=== PATIENT | female | born 1945 | race Caucasian/White ===

== ENCOUNTER → 2016-12-25 | Outpatient (CLI) | payer OTHER ==
[~2016-12-25] MED LIST: ATV/1 PO; LPT10 PO; OMEG10007 PO
[2016-12-25 13:08] LABS: BASO % 0.9 %; BASO ABS # 0.05 K/uL (0-0.2); COMPLETE YES; EOS % 1.4 %; HEMATOCRIT 42.1 % (37-47); IG% 0.2 %; LYMPH % 24.8 %; LYMPH ABS # 1.41 K/uL (1.2-3.4); MEAN CELL VOLUME 94.2 fL (80-100); MEAN CORPUSCULAR HEMOGLOBIN 31.8 pg (25-34); MEAN CORPUSCULAR HGB CONC 33.7 g/dl (32-36); MEAN PLATELET VOLUME 11.4 fL (7.4-10.4); MONO % 7.6 %; NEUT % 65.1 %; PLATELET COUNT 262 K/uL (130-400); RED BLOOD COUNT 4.47 M/uL (4.2-5.4); WHITE BLOOD COUNT 5.68 K/uL (4.8-10.8)
[2016-12-25 13:24] LABS: ALT/SGPT 25 U/L (12-78); BLOOD UREA NITROGEN 23 mg/dl (7-18); BUN/CREATININE RATIO 27.1 (10-20); CARBON DIOXIDE 26 mmol/L (21-32); CHLORIDE 105 mmol/L (98-107); CHOLESTEROL 225 mg/dl (0-200); CREATININE 0.85 mg/dl (0.60-1.20); GLUCOSE 94 mg/dl (70-99); POTASSIUM 4.7 mmol/L (3.5-5.1); SODIUM 140 mmol/L (136-145); TRIGLYCERIDES 63 mg/dl (0-150); VERY LOW DENSITY LIPOPROT CALC 13 mg/dl
[2016-12-25 13:35] LABS: ALB/GLOB RATIO 1.2 (0.9-2); ALKALINE PHOSPHATASE 79 U/L (45-117); AST/SGOT 21 U/L (15-37); CHOLESTEROL/HDL RATIO 2.3; HDL CHOLESTEROL 98 mg/dl; LDL CHOLESTEROL CALCULATED 114 mg/dl
== END | disposition home or self-care (01) ==
LOC: C.LABBC 11:49
PROVIDERS: ATTEND Internal Medicine Geriatric Medicine
DX: E78.5 Hyperlipidemia, unspecified (principal); M19.90 Unspecified osteoarthritis, unspecified site; M54.16 Radiculopathy, lumbar region; R10.9 Unspecified abdominal pain; K76.0 Fatty (change of) liver, not elsewhere classified

== ENCOUNTER → 2017-01-31 | Outpatient (CLI) | payer OTHER ==
--- NOTE | 2017-01-31 12:47 | MAMMOGRAPHY REPORT ---
BILATERAL DIGITAL SCREENING MAMMOGRAM WITH CAD: 01/31/2017 CLINICAL HISTORY: Routine screening. Patient has no complaints. TECHNIQUE: Bilateral CC and MLO views were obtained. Current study was also evaluated with a Comput er Aided Detection (CAD) system. COMPARISON: Comparison is made to exams dated: 01/24/2016 mammogram, 08/12/2014 mammogram, 07/16/2013 mammogram, 07/09/2012 mammogram, 07/05/2011 mammogram, and 07/04/2010 mammogram - [facility]. BREAST COMPOSITION: There are scattered areas of fibroglandular density in both breasts. FINDINGS: There are minimal vascular calcifications in the breasts. A few stable benign-appearing m icrocalcifications. No new suspicious mass, architectural distortion or cluster of microcalcificati ons is seen. IMPRESSION: ACR BI-RADS CATEGORY 1: NEGATIVE There is no mammographic evidence of malignancy. A 1 year screening mammogram is recommended. The p atient will receive written notification of the results. Approximately 10% of breast cancers are not detected with mammography. A negative mammographic repor t should not delay biopsy if a clinically suggestive mass is present. Katina Argueta M.D. ay/:01/31/2017 11:18:26 [employer] Pipe Supervisor: Yesenia BARRY(R)(M), [facility] letter sent: Normal 1/2 BI-RADS Code: ACR BI-RADS Category 1: Negative
== END | disposition home or self-care (01) ==
LOC: C.MAMM 09:44
PROVIDERS: ATTEND Internal Medicine Geriatric Medicine
DX: Z12.31 Encounter for screening mammogram for malignant neoplasm of breast (principal)

== ENCOUNTER → 2017-02-26 | Outpatient (CLI) | payer OTHER ==
--- NOTE | 2017-02-26 11:48 | DIAGNOSTIC IMAGING REPORT ---
CT OF THE CHEST WITHOUT IV CONTRAST CLINICAL HISTORY: Solitary pulmonary nodule COMPARISON STUDY: 03/01/2016 CT DOSE: 193.28 mGy.cm TECHNIQUE: CT of the thorax was performed from the thoracic inlet to the lung bases. Images are reviewed in the axial, sagittal, and coronal planes. IV contrast was not administered for this examination. FINDINGS: Thyroid: Imaged portions of the thyroid gland are normal in appearance. Thoracic aorta: The thoracic aorta is normal in course and caliber, noting standard 3 vessel arch anatomy. Heart: The heart is normal in size and configuration, without pericardial effusion. Lungs and pleural spaces: No pleural effusions are visualized. There is a new 7 mm cluster of nodules within the right middle lobe as visualized in image #[id number]. These are nonspecific but likely are inflammatory. There is a new 11 mm lobulated nodule within the left lower lobe as visualized in image #120/306. There are few scattered tiny pulmonary nodules including the previously described 2 mm right lower lobe pulmonary nodule which is felt to be stable. Mediastinum: There is no mediastinal lymphadenopathy. Dottie: There is no evidence of pathologic hilar adenopathy given the limitations of a noncontrast study Axilla: Clear. Upper abdomen: Partially visualized upper abdominal viscera is within normal limits. Skeletal structures: There are no lytic or blastic osseous lesions. IMPRESSION: 1. Stable 2 mm right lower lobe pulmonary nodule 2. New cluster of nodules within the right middle lobe measuring 7 mm in aggregate 3. New solid 11 mm lobulated pulmonary nodule within the left lower lobe 4. A 3 month follow-up CT scan is recommended. Please refer to below summary of Fleischner criteria recommendations for follow-up of incidental CT nodules (Theo Huntley, Guidelines for management of small pulmonary nodules detected on CT scans: A statement from the Fleischner Society, Radiology 237: [phone].) SOLID NODULES Solitary nodule size: <6 mm * low risk patients: no follow-up needed * high risk patients: optional CT at 12 months Solitary nodule size: 6-8 mm * low risk patients: follow-up at 6-12 months, then consider further follow-up at 18-24 months * high risk patients: initial follow-up CT at 6-12 months and then at 18-24 months if no change Solitary nodule size: >8 mm * either low or high risk patients - consider follow-up CT at 3 months, and/or CT-PET, and/or biopsy Multiple nodules size: <6 mm * low risk patients: no routine follow-up * high risk patients: optional CT at 12 months Multiple nodules size: 6-8 mm * low risk patients: follow-up at 3-6 months, then consider further follow-up at 18-24 months * high risk patients: follow-up at 3-6 months, then at 18-24 months if no change Multiple nodules size: >8 mm * low risk patients: follow-up at 3-6 months, then consider further follow-up at 18-24 months * high risk patients: follow-up at 3-6 months, then at 18-24 months if no change Note: newly detected indeterminate nodule in persons 35 years of age or older. * low risk patients: minimal or absent history of smoking and/or other known risk factors * high risk patients: history of smoking or of other known risk factors (e.g. first degree relative with lung cancer, or exposure to asbestos, radon, uranium) * if a nodule up to 8 mm is partly solid or is ground glass further follow-up is required after 24 months to exclude possible slow growing adenocarcinoma (SAURABH) SUBSOLID NODULES Solitary pure ground-glass nodule * nodule size <6 mm - no CT follow-up required * nodule size >=6 mm - follow-up CT at 6-12 months, then every 2 years until 5 years Solitary part-solid nodule * nodule size <6 mm - no CT follow-up required * nodule size >=6 mm - follow-up CT at 3-6 months. If unchanged, and solid component remains <6 mm, then annual follow-up for 5 years Multiple subsolid nodules * nodule size <6 mm - follow-up CT at 3-6 months, consider further follow-up at 2 and 4 years if stable * nodule size >=6 mm - follow-up CT at 3-6 months, subsequent management based on the most suspicious nodule(s) Electronically signed by: Bandar Nicholson M.D. 02/26/2017 11:46 AM Dictated Date/Time: 02/26/2017 11:35 AM
== END | disposition home or self-care (01) ==
LOC: C.CTS 11:11
PROVIDERS: ATTEND Internal Medicine Geriatric Medicine
DX: R91.1 Solitary pulmonary nodule (principal)

== ENCOUNTER → 2017-06-05 | Outpatient (CLI) | payer OTHER ==
--- NOTE | 2017-06-05 11:06 | DIAGNOSTIC IMAGING REPORT ---
(CHEST) THORAX WITHOUT CLINICAL HISTORY: 72 years-old Female presenting with multiple pulmonary nodules, follow-up. TECHNIQUE: Multidetector CT imaging of the chest was performed without the use of intravenous contrast. IV contrast: None. A dose lowering technique was used consistent with the principles of ALARA (as low as reasonably achievable). COMPARISON: 02/26/2017. CT DOSE (mGy.cm): The estimated cumulative dose is 194.71 mGy.cm. 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 On soft tissue windows, normal thyroid and thoracic inlet. No axillary, supraclavicular, hilar, or mediastinal lymphadenopathy. Minimal atherosclerosis of the aortic arch. Normal heart size. Coronary artery calcification. No pericardial or pleural effusion. Upper abdomen normal. On lung windows, previously identified cluster of nodules in the right middle lobe has decreased in conspicuity (series 4 images 56 and 57). Previously noted multilobular solid nodule in the superior segment of the left lower lobe has also decreased in size and conspicuity, now measuring 8 mm (series 4 image 132). Few scattered old calcified granulomata 2 mm right lower lobe solid nodule is stable from prior (series 4 image 227). Airways patent. On bone windows, minimal degenerative changes of the thoracic spine. IMPRESSION: 1. Decreased size and conspicuity of the cluster of right middle lobe nodules and multilobular solid nodule in the superior segment of the left lower lobe. This likely indicates an infectious or inflammatory etiology. 2. Stable 2 mm right lower lobe pulmonary nodule unchanged since February 2016. Electronically signed by: Malick Mccarty M.D. 06/05/2017 11:04 AM Dictated Date/Time: 06/05/2017 10:58 AM
== END | disposition home or self-care (01) ==
LOC: C.CTS 10:43
PROVIDERS: ATTEND Physician Assistant
DX: R91.1 Solitary pulmonary nodule (principal)

== ENCOUNTER → 2017-12-28 | Outpatient (CLI) | payer OTHER ==
[~2017-12-28] MED LIST changes: +BIOT1TAB2 PO; +CALC625T8 PO; +FLUT0.15 NAE; +MISCCAP80 PO; +MULT-506 PO; +NAPR250T3 PO; +VNTHFA/IN INH
[2017-12-28 15:15] LABS: ALBUMIN 4.2 gm/dl (3.4-5.0); ALT/SGPT 22 U/L (12-78); BLOOD UREA NITROGEN 16 mg/dl (7-18); CALCIUM 10.2 mg/dl (8.5-10.1); CARBON DIOXIDE 28 mmol/L (21-32); CHOLESTEROL 186 mg/dl (0-200); CREATININE 0.84 mg/dl (0.60-1.20); GLUCOSE 90 mg/dl (70-99); POTASSIUM 4.3 mmol/L (3.5-5.1); SODIUM 137 mmol/L (136-145)
[2017-12-28 15:25] LABS: ALKALINE PHOSPHATASE 89 U/L (45-117); AST/SGOT 19 U/L (15-37); LDL CHOLESTEROL CALCULATED 88 mg/dl; TOTAL PROTEIN 7.2 gm/dl (6.4-8.2)
== END | disposition home or self-care (01) ==
LOC: C.LAB 13:13
PROVIDERS: ATTEND Internal Medicine Geriatric Medicine
DX: G47.00 Insomnia, unspecified (principal); E78.5 Hyperlipidemia, unspecified; R53.83 Other fatigue; K30 Functional dyspepsia; M19.90 Unspecified osteoarthritis, unspecified site; N39.41 Urge incontinence

== ENCOUNTER 2018-01-23 04:56 | Inpatient (IN) | payer OTHER ==
[2017-12-28 12:26] VITALS: Ht 132.1 cm; Wt 68.7 kg
--- NOTE | 2017-12-28 12:59 | PAT Medication Instructions ---
Service Date Dec 28, 2017. Current Home Medication List Albuterol Hfa (Ventolin Hfa), 2-4 PUFFS INH Q6H PRN for Shortness of Breath Atorvastatin (Lipitor), 5 MG PO Q2D Biotin (Biotin), 1 TAB PO QPM Calcium Polycarbophil (Fiber-Lax), 1 TAB PO QAM Fluticasone Propionate (Nasal) (Flonase Allergy Relief), 2 SPRAYS CHUY QD PRN for Shortness of Breath Lorazepam (Ativan), 0.5 MG PO HS Multivitamin (Multivitamin), 1 TAB PO QPM Naproxen Tab (Naprosyn), 250 MG PO QD PRN for Pain Probiotic Product (Probiotic), 1 CAP PO QPM Medication Instructions For Your Scheduled Surgery - Hold the following medications 7 days prior to surgery per your surgeon's instructions: Naproxen Tab (Naprosyn), 250 MG PO QD PRN for Pain - Hold the following medications the morning of surgery: Calcium Polycarbophil (Fiber-Lax), 1 TAB PO QAM - Take the following medications the morning of surgery with a sip of water: Albuterol Hfa (Ventolin Hfa), 2-4 PUFFS INH Q6H PRN for Shortness of Breath (if needed, and bring it with you to the hospital) Fluticasone Propionate (Nasal) (Flonase Allergy Relief), 2 SPRAYS CHUY QD PRN for Shortness of Breath (if needed) - Take the following medications as scheduled the night before surgery: Albuterol Hfa (Ventolin Hfa), 2-4 PUFFS INH Q6H PRN for Shortness of Breath (if needed) Biotin (Biotin), 1 TAB PO QPM Fluticasone Propionate (Nasal) (Flonase Allergy Relief), 2 SPRAYS CHUY QD PRN for Shortness of Breath (if needed) Lorazepam (Ativan), 0.5 MG PO HS Multivitamin (Multivitamin), 1 TAB PO QPM Probiotic Product (Probiotic), 1 CAP PO QPM Atorvastatin (Lipitor), 5 MG PO Q2D If you have any questions please call us at [phone] or [phone] or [phone]
[2017-12-28 14:01] LABS: BASO % 0.6 %; BASO ABS # 0.03 K/uL (0-0.2); EOS % 1.3 %; EOS ABS # 0.07 K/uL (0-0.5); HEMATOCRIT 42.5 % (37-47); HEMOGLOBIN 14.4 g/dL (12.0-16.0); IG# 0.01 K/uL (0.00-0.02); LYMPH % 32.3 %; LYMPH ABS # 1.74 K/uL (1.2-3.4); MEAN CELL VOLUME 93.2 fL (80-100); MEAN CORPUSCULAR HEMOGLOBIN 31.6 pg (25-34); MEAN CORPUSCULAR HGB CONC 33.9 g/dl (32-36); MEAN PLATELET VOLUME 11.1 fL (7.4-10.4); MONO % 7.6 %; MONO ABS # 0.41 K/uL (0.11-0.59); NEUT ABS # 3.13 K/uL (1.4-6.5); PLATELET COUNT 234 K/uL (130-400); RED CELL DISTRIBUTION WIDTH CV 12.6 % (11.5-14.5); RED CELL DISTRIBUTION WIDTH SD 42.9 fL (36.4-46.3); WHITE BLOOD COUNT 5.39 K/uL (4.8-10.8)
--- NOTE | 2017-12-28 14:02 | DIAGNOSTIC IMAGING REPORT ---
CHEST 2 VIEWS ROUTINE HISTORY: 72 years-old Female PAT preoperative exam. No acute chest complaints COMPARISON: Chest CT 06/05/2017 TECHNIQUE: PA and lateral views of the chest. FINDINGS: Cardiomediastinal and hilar silhouettes are within normal limits. There is no pneumothorax, pleural effusion, focal airspace consolidation or overt pulmonary edema. The superior most lung apices are excluded from the [id number]. Bones of the chest appear grossly intact. Degenerative changes noted about the shoulders and spine. IMPRESSION: No acute process. The above report was generated using voice recognition software. It may contain grammatical, syntax or spelling errors. Electronically signed by: Dusty Castellano M.D. 12/28/2017 2:01 PM Dictated Date/Time: 12/28/2017 1:53 PM
[2017-12-29 07:21] LABS: HEMOGLOBIN A1C 5.3 % (4.5-5.6)
--- NOTE | 2018-01-07 14:37 | HISTORY & PHYSICAL EXAMINATION ---
DATE OF ADMISSION: 01/23/2018 CHIEF COMPLAINT: Left knee pain. HISTORY OF PRESENT ILLNESS: Faith is a 72-year-old female with a 9-year history of left knee pain. The patient rates her pain at 8/10. She has pain with her daily activities. She has limited standing and walking tolerance. Pain is worse with weightbearing. The patient has had injections and anti-inflammatories through the years without relief. She has failed conservative treatment and is scheduled for left knee replacement. PAST MEDICAL HISTORY: Lung nodules. She denies heart disease, diabetes or DVT. PAST SURGICAL HISTORY: Right TKA and hysterectomy. SOCIAL HISTORY: The patient drinks 2 alcoholic drinks per week. She denies tobacco use. She lives in a 2-story home with 9 stairs. She is and retired. FAMILY HISTORY: Negative for DVT. MEDICATIONS: Zetia 10 mg, lorazepam 0.5 mg, and naproxen 500 mg b.i.d. ALLERGIES: DOXYCYCLINE CAUSES DEHYDRATION AND DIARRHEA. REVIEW OF SYSTEMS: See HPI. Ten other systems reviewed, all negative. PHYSICAL EXAMINATION: VITAL SIGNS: Height 5 feet 4 inches, weight 150 pounds, and BMI 26. GENERAL: This is a well-developed and well-nourished female who is alert and oriented x3. Mood and affect are appropriate. HEENT: Normocephalic and atraumatic. Mucous membranes are moist and intact. NECK: Supple without lymphadenopathy. HEART: Regular rate and rhythm without murmurs, rubs or gallops. LUNGS: Clear to auscultation without wheezes or rhonchi. ABDOMEN: Soft and nontender. Bowel sounds are equal and active. EXTREMITIES: No ecchymosis, redness or warmth. She has neutral alignment. Range of motion is from 0-115 degrees. She has no laxity. She has moderate effusion. She is neurovascularly intact with +5/5 strength. X-RAY EXAMINATION: AP and lateral views show joint space narrowing and osteophyte formation. IMPRESSION: Degenerative joint disease, left knee. PLAN: The patient will be admitted for a left total knee arthroplasty. We will plan on aspirin for DVT prophylaxis. PCP is Dr. Ramos. She will have [facility] for home physical therapy.
[~2018-01-23] VITALS: Ht 132.1 cm; Wt 68.7 kg
[2018-01-23] VITALS (8 sets, daily range): BP systolic 103–150; BP diastolic 64–77; PULSE 49–65; TEMP 35–36.9; O2SAT 96–99
[~2018-01-23 04:56] MED LIST changes: -OMEG10007 PO
[2018-01-23] MEDS ORDERED: GABAPENTIN 300 MG CAP PO SCH (06:00)
[2018-01-23] MEDS ORDERED: ACETAMINOPHEN 500 MG TAB PO SCH (06:00)
[2018-01-23] MEDS ORDERED: FAMOTIDINE 20 MG TAB PO SCH (06:00)
[2018-01-23] MEDS ORDERED: CEFAZOLIN 1000MG IV PUSH 7.5 ML IV SCH (06:00)
[2018-01-23] MEDS ORDERED: LACTATED RINGER'S 1000ML 500 ML IV SCH (06:00)
[2018-01-23] MEDS ORDERED: OXYCODONE HCL 10 MG TABCR (OXYCONTIN) PO SCH (06:00)
[2018-01-23] MEDS ORDERED: DEXAMETHASONE 4 MG TAB PO SCH (06:00)
[2018-01-23] MEDS ORDERED: METOCLOPRAMIDE HCL 10 MG TAB PO SCH (06:00)
[2018-01-23] MEDS ORDERED: CeleBREX 200 MG CAP PO SCH (06:00)
[2018-01-23] MEDS ORDERED: ROPIVACAINE 5MG/ML 30 ML 150 MG, BUPIVACAINE 0.5% MPF INJ 30 ML, EpINEphrine HCL INJ 0.... INFIL SCH ×8 (06:00)
[2018-01-23] MEDS ORDERED: LACTATED RINGER'S 1000ML 1,000 ML IV SCH (06:00)
[2018-01-23] MEDS: TRANEXAMIC ACID INJ 1,000 MG x 2 Bags IV SCH ×4 (06:23→06:30)
[2018-01-23] MEDS ORDERED: BUPIVACAINE 0.5 % 5 MG/1 ML PF 10ML VIAL ONE (06:27)
[2018-01-23] MEDS ORDERED: BUPIVACAINE 0.25% 30 ML VIAL ONE (06:28)
[2018-01-23] MEDS ORDERED: ORTHO JOINT ANESTHETIC ONE (06:44)
[2018-01-23] MEDS ORDERED: POVIDONE-IODINE OP SOLN 30 ML BTL ONE (06:44)
[2018-01-23] MEDS ORDERED: BACITRACIN 50000 UNIT VIAL ONE (06:44)
[2018-01-23] MEDS ORDERED: MIDAZOLAM HCL 1 MG/ML 2ML VIAL ONE ×2 (06:48→07:16)
--- NOTE | 2018-01-23 06:57 | History & Physical Bridge Note ---
H&P Re-Evaluation Bridge Note: I have examined the patient, reviewed the History & Physical and in the interval since the performance of the History & Physical I have noted the following changes of clinical significance: No changes noted
[2018-01-23] MEDS ORDERED: LIDOCAINE HCL 2% 2 ML VIAL (20MG/ML) ONE (07:20)
[2018-01-23] MEDS ORDERED: PROPOFOL IV EMULSION 10 MG/ML 20 ML VIAL IV ONE (07:20)
--- NOTE | 2018-01-23 08:03 | [facility] Operative Report ---
Operative Report Operative Date Jan 23, 2018. Pre-Operative Diagnosis Left knee degenerative joint disease Post-Operative Diagnosis Left knee degenerative joint disease Procedure(s) Performed Left total knee arthroplasty utilizing journey to patient match total knee arthroplasty size 3 femur to tibia 10 Poly [address] Calvin Salvador Edge In[employer] Heels Surgeon(s) Jez Parekh PA-C Estimated Blood Loss 5cc Findings Patient presents with severe end-stage tricompartmental degenerative joint disease no response to conservative therapy including physical therapy anti- inflammatories relative rest activity modification injections patient presents for total knee arthroplasty after thorough understanding of discussion of risks and complications Specimens A. Left knee bone and tissue Anesthesia Type MAC Spinal Regional Complication(s) none Disposition Recovery Room / PACU Indications Patient presents after failing attempts at conservative management with severe end-stage tricompartmental degenerative joint disease patient subchondral cystic changes sclerosis marginal osteophytes bone to bone changes no response to conservative management Description of Procedure After proper prepping and draping of the left lower extremity anterior midline incision was made over the region of the extensor extensor mechanism after meticulous hemostasis was obtained and maintained in subcutaneous tissues a medial parapatellar incision was made The patella was subluxed lateralward the medial lateral gutter were cleaned from any hypertrophic synovitis and scar tissue of the distal femoral block was placed and the distal femoral osteotomy cut was made subsequently the chamfers anterior and posterior osteotomy cuts were made utilizing the 4-in-1 block the tibia was subsequently subluxed anteriorward medial and ateral meniscal remnants were excised in their entirety remnants of the anterior and posterior cruciate ligaments were excised in their entirety excellent exposure of the proximal tibia was obtained the tibial osteotomy guide was placed on the proximal tibial osteotomy cut was made once again the knee was irrigated with copious amounts of sterile saline solution the patella was subsequently everted lateralward thickened scar tissue around the patella was removed the patella was subsequently cut utilizing a freehand technique and was drilled prepared for final preparation and placement of patella socially flexion-extension gaps were checked and the equal and symmetric trials were placed to the appropriate femoral and tibial trials with poly-spacer being placed for equal flexion and extension gaps and full range of motion including extension to 0 and flexion to 140 the trial components after having been taken to recovery range of motion was subsequently removed meticulous hemostasis was obtained and maintained subsequently a knee block injection of joint cocktail including ropivacaine 0.5% 150 mg. Bupivacaine 0.5 % epinephrine 1-200,030 mL's toradol 30 mg dexamethasone 4 mg ketamine 10 mg clonidine 100 micrograms normal saline solution 30 mg was infiltrated into the soft tissues of the posterior knee medial lateral gutters and periosteal synovium special attention was paid to protect neurovascular structures at all times subsequently trial components having been removed the knee was irrigated with sterile saline solution. debris was removed the proximal tibia was subsequently prepared and was made ready for the placement of the tibial component tibial component was also cemented and tamped into position the femoral component was subsequently placed and cemented in the position the patellar component was subsequently cemented in position because hemostasis once again obtained and maintained wound having been thoroughly irrigated with debridement and debridement lavage was performed as well as a medial parapatellar incision closed with #1 Vicryl in interrupted fashion subcutaneous was closed with #2 Vicryl skin was closed with skin clips. PA-C was necessary for prepping and drapping as well as wound closure of deep fascia Sub cutaneous tissue and skin and was necessary for the case. A sterile compressive dressing was placed patient was taken to recovery in stable condition of report dictated by [place] I attest to the content of the Intraoperative Record and any orders documented therein. Any exceptions are noted below. I attest to the content of the Intraoperative Record and any orders documented therein. Any exceptions are noted below.
[2018-01-23] MEDS ORDERED: ATROPINE SULFATE 0.1 MG/ML 5ML SYR IV PRN (09:00)
[2018-01-23] MEDS ORDERED: KETOROLAC TROMETHAMINE 30 MG/ML VIAL IV. PRN (09:00)
[2018-01-23] MEDS ORDERED: ALBUTEROL HFA 8 GM INHALER INH PRN (09:00)
[2018-01-23] MEDS ORDERED: BISACODYL 10 MG SUPP PR PRN (09:00)
[2018-01-23] MEDS ORDERED: KETOROLAC TROMETHAMINE 15 MG/ML VIAL IV. PRN (09:00)
[2018-01-23] MEDS ORDERED: ONDANSETRON INJ 2 MG/ML 2 ML VIAL IV PRN ×2 (09:00)
[2018-01-23] MEDS ORDERED: HYDROmorphone INJ 2 MG/ML SYR/VIAL IV PRN (09:00)
[2018-01-23] MEDS ORDERED: METOPROLOL TARTRATE 1 MG/ML VIAL IV PRN (09:00)
[2018-01-23] MEDS ORDERED: MoRPHine SULFATE 2 MG/ML CARP IV PRN (09:00)
[2018-01-23] MEDS ORDERED: FLUTICASONE PROPIONATE NA SPR 16 GM BTL NAE PRN (09:00)
[2018-01-23] MEDS ORDERED: MAGNESIUM HYDROXIDE SUSP 30 ML UDC PO PRN (09:00)
[2018-01-23] MEDS ORDERED: PHENYLEPHRINE 100MCG/ML 5ML SYR IV PRN (09:00)
[2018-01-23] MEDS ORDERED: ALUMINUM/MAGNESIUM/SIMETH (MAALOX MAX) 30 ML UDC PO PRN (09:00)
[2018-01-23] MEDS ORDERED: SOD PHOSPHATE/SOD BIPHOSPHATE ENEMA 132 ML BTL PR PRN (09:00)
[2018-01-23] MEDS ORDERED: ZOLPIDEM TARTRATE 5 MG TAB PO PRN (09:00)
--- NOTE | 2018-01-23 09:13 | DIAGNOSTIC IMAGING REPORT ---
L KNEE 1 OR 2 VIEWS ROUTINE CLINICAL HISTORY: 72 years-old Female presenting with AP/LATERAL IN PACU LEFT KNEE. TECHNIQUE: Frontal and lateral views of the left knee were obtained. COMPARISON: None. FINDINGS: Post surgical changes of total left knee arthroplasty with patellar resurfacing. Surgical drain in place. Expected intra-articular and soft tissue emphysema. No malalignment. No periprosthetic fracture. No hardware competition. IMPRESSION: Expected postsurgical appearance status post total left knee arthroplasty with patellar resurfacing. Electronically signed by: Malick Mccarty M.D. 01/23/2018 9:12 AM Dictated Date/Time: 01/23/2018 9:11 AM
[2018-01-23] MEDS: D5W AND 1/2NSS + 20MEQ KCL 1,000 ML IV SCH ×2 (11:02→20:32)
--- NOTE | 2018-01-23 12:03 | Anesthesiology Progress Note ---
Anesthesia Post Op Note Date & Time Jan 23, 2018 at 12:03 Vital Signs Pain Intensity: 0.0 Vital Signs Past 12 Hours Date Time Temp Pulse Resp B/P (MAP) Pulse Ox O2 Delivery O2 Flow Rate FiO2 01/23/18 11:42 36.5 54 18 113/70 (84) 98 Nasal Cannula 2.0 01/23/18 10:30 63 12 115/72 (86) 96 Nasal Cannula 2.0 01/23/18 10:03 59 12 113/72 (86) 96 2.0 01/23/18 09:46 96 Nasal Cannula 2.0 01/23/18 09:35 Nasal Cannula 2.0 01/23/18 09:35 36.9 61 14 121/71 (88) 96 Nasal Cannula 2.0 01/23/18 09:16 132/63 01/23/18 09:13 36.7 66 16 132/63 (80) 97 Nasal Cannula 2 01/23/18 09:12 67 12 01/23/18 09:12 67 12 97 01/23/18 09:11 143/74 01/23/18 09:10 71 16 01/23/18 09:10 72 16 98 01/23/18 09:09 70 20 97 01/23/18 09:09 70 20 01/23/18 09:06 127/60 01/23/18 09:04 64 13 01/23/18 09:04 63 13 98 01/23/18 09:03 65 13 98 01/23/18 09:03 65 13 01/23/18 09:01 137/63 01/23/18 08:58 68 18 01/23/18 08:58 70 18 94 01/23/18 08:56 131/65 01/23/18 08:53 65 10 94 01/23/18 08:53 65 10 01/23/18 08:51 137/73 01/23/18 08:48 71 22 96 01/23/18 08:48 74 22 01/23/18 08:46 140/69 01/23/18 08:43 36.7 68 14 124/64 (88) 97 Nasal Cannula 2 01/23/18 08:43 66 10 01/23/18 08:43 66 10 124/64 97 01/23/18 05:33 36.5 65 20 150/74 99 Room Air Notes Mental Status: alert / awake / arousable, participated in evaluation Pt Amnestic to Procedure: Yes Nausea / Vomiting: adequately controlled Pain: adequately controlled Airway Patency, RR, SpO2: stable & adequate BP & HR: stable & adequate Hydration State: stable & adequate Anesthetic Complications: no major complications apparent
[2018-01-23] MEDS: ACETAMINOPHEN 500 MG TAB PO SCH ×2 (13:25→21:50)
[2018-01-23] MEDS: CEFAZOLIN IV 2,000 MG in SYRINGE 0 ML IV SCH ×2 (13:27→21:49)
[2018-01-23] MEDS: TRAMADOL HCL 50 MG TAB PO PRN (20:31)
[2018-01-23] MEDS: LORAZEPAM 1 MG TAB PO SCH (20:31)
[2018-01-23] MEDS: SENNA 8.6 MG TAB PO SCH (20:33)
[2018-01-23] MEDS: ASPIRIN 81 MG ECTAB PO SCH (20:34)
[2018-01-23] MEDS: DOCUSATE SODIUM 100 MG CAP PO SCH (20:34)
[2018-01-23] MEDS: CALCIUM POLYCARBOPHIL 1 TAB PO SCH (20:34)
[2018-01-24 02:31] VITALS: BP 132/66; PULSE 69; TEMP 36.7; O2SAT 97
[2018-01-24] MEDS: ACETAMINOPHEN 500 MG TAB PO SCH ×3 (05:47→21:47)
[2018-01-24] MEDS: D5W AND 1/2NSS + 20MEQ KCL 1,000 ML IV SCH (05:47)
[2018-01-24 05:59] LABS: HEMATOCRIT 34.7 % (37-47); HEMOGLOBIN 11.6 g/dL (12.0-16.0); MEAN CELL VOLUME 92.8 fL (80-100); MEAN CORPUSCULAR HGB CONC 33.4 g/dl (32-36); MEAN PLATELET VOLUME 10.7 fL (7.4-10.4); PLATELET COUNT 183 K/uL (130-400); RED CELL DISTRIBUTION WIDTH CV 12.6 % (11.5-14.5); RED CELL DISTRIBUTION WIDTH SD 42.7 fL (36.4-46.3); WHITE BLOOD COUNT 12.84 K/uL (4.8-10.8)
[2018-01-24 06:33] LABS: CALCIUM 9.1 mg/dl (8.5-10.1); CREATININE 0.91 mg/dl (0.60-1.20); POTASSIUM 4.9 mmol/L (3.5-5.1)
[2018-01-24 07:01] VITALS: BP 111/57; PULSE 63; TEMP 36.6; O2SAT 98
--- NOTE | 2018-01-24 08:00 | Orthopedic Progress Note ---
Orthopedic Progress Note Date of Service Jan 24, 2018. Subjective Post OP Day: 1 Reports: feeling well Objective N/V intact, dressing C/D/I (Hemovac in place), toes mobile Date Time Temp Pulse Resp B/P (MAP) Pulse Ox O2 Delivery O2 Flow Rate FiO2 01/24/18 07:01 36.6 63 16 111/57 (75) 98 Room Air 01/24/18 02:31 36.7 69 16 132/66 (88) 97 Room Air 01/23/18 23:26 Room Air 01/23/18 23:07 36.4 59 16 144/77 (99) 97 Room Air 01/23/18 15:33 Nasal Cannula 2.0 01/23/18 14:58 35.0 16 110/70 (83) 98 Nasal Cannula 2.0 01/23/18 12:31 49 12 103/64 (77) 98 Nasal Cannula 2.0 01/23/18 11:42 36.5 54 18 113/70 (84) 98 Nasal Cannula 2.0 01/23/18 10:30 63 12 115/72 (86) 96 Nasal Cannula 2.0 01/23/18 10:03 59 12 113/72 (86) 96 2.0 01/23/18 09:46 96 Nasal Cannula 2.0 01/23/18 09:35 Nasal Cannula 2.0 01/23/18 09:35 36.9 61 14 121/71 (88) 96 Nasal Cannula 2.0 01/23/18 09:16 132/63 01/23/18 09:13 36.7 66 16 132/63 (80) 97 Nasal Cannula 2 01/23/18 09:12 67 12 01/23/18 09:12 67 12 97 01/23/18 09:11 143/74 01/23/18 09:10 71 16 01/23/18 09:10 72 16 98 01/23/18 09:09 70 20 97 01/23/18 09:09 70 20 01/23/18 09:06 127/60 01/23/18 09:04 64 13 01/23/18 09:04 63 13 98 01/23/18 09:03 65 13 98 01/23/18 09:03 65 13 01/23/18 09:01 137/63 01/23/18 08:58 68 18 01/23/18 08:58 70 18 94 01/23/18 08:56 131/65 01/23/18 08:53 65 10 94 01/23/18 08:53 65 10 01/23/18 08:51 137/73 01/23/18 08:48 71 22 96 01/23/18 08:48 74 22 01/23/18 08:46 140/69 01/23/18 08:43 36.7 68 14 124/64 (88) 97 Nasal Cannula 2 01/23/18 08:43 66 10 01/23/18 08:43 66 10 124/64 97 Laboratory Results 24 Hours: Test 01/24/18 05:43 Hematocrit 34.7 % Hemoglobin 11.6 g/dL Prothromb Time International Ratio 1.0 Prothrombin Time 10.3 SECONDS Assessment & Plan Assessment: 72 yo female stable POD #1 s/p left TKA Plan: 1. Med management 2. DVT prophylaxis- ASA, SCDs 3. PT/OT 4. D/C planning: home w/ HH
[2018-01-24] MEDS: DOCUSATE SODIUM 100 MG CAP PO SCH ×2 (08:45→20:45)
[2018-01-24] MEDS: MULTIVITAMIN TAB PO SCH (08:46)
[2018-01-24] MEDS: ASPIRIN 81 MG ECTAB PO SCH ×2 (08:46→20:45)
[2018-01-24] MEDS: ATORVASTATIN 10 MG TAB PO SCH (08:46)
--- NOTE | 2018-01-24 08:49 | Anesthesiology Progress Note ---
Anesthesia Post Op Note Date & Time Jan 24, 2018 at 08:48 Vital Signs Pain Intensity: 3.0 Vital Signs Past 12 Hours Date Time Temp Pulse Resp B/P (MAP) Pulse Ox O2 Delivery O2 Flow Rate FiO2 01/24/18 07:01 36.6 63 16 111/57 (75) 98 Room Air 01/24/18 02:31 36.7 69 16 132/66 (88) 97 Room Air 01/23/18 23:26 Room Air 01/23/18 23:07 36.4 59 16 144/77 (99) 97 Room Air Notes Mental Status: alert / awake / arousable, participated in evaluation Pt Amnestic to Procedure: Yes Nausea / Vomiting: adequately controlled Pain: adequately controlled Airway Patency, RR, SpO2: stable & adequate BP & HR: stable & adequate Hydration State: stable & adequate Neuraxial Anesthesia: was administered, sensory block resolved Anesthetic Complications: no major complications apparent
[2018-01-24 10:43] VITALS: BP 124/54; PULSE 77; O2SAT 98
[2018-01-24 10:45] VITALS: BP 112/73; PULSE 64; TEMP 36.6; O2SAT 98
[2018-01-24] MEDS: OXYCODONE HCL IR 5 MG TAB (IMMEDIATE RELEASE) PO PRN ×2 (15:17→19:42)
[2018-01-24 15:24] VITALS: BP 111/64; PULSE 63; TEMP 37; O2SAT 97
--- NOTE | 2018-01-24 18:11 | Discharge Instructions ---
Discharge Instructions Date of Service Jan 24, 2018. Admission Reason for Admission: Left Knee Osteoarthritis Discharge Discharge Diagnosis / Problem: left total knee replacement Discharge Goals Goal(s): Decrease discomfort, Improve function, Increase independence Activity Recommendations Activity Limitations: as noted below Weightbearing Status: Left weightbearing (as tolerated) . Instructions / Follow-Up Instructions / Follow-Up ACTIVITY RECOMMENDATIONS: SELF CARE INSTRUCTIONS AFTER TOTAL KNEE REPLACEMENT A. You may need to continue a physical therapy program after discharge from the hospital. There are several options available to you. Your doctor will assist you in selecting the best one for you. 1. An out-patient facility 2 to 3 times a week for therapy or home therapy. 2. Continue working on all exercises taught to you in the hospital. Your goals should be to increase bending of your knee to 90 degrees and beyond and to fully straighten your knee. B. You may progress at your own pace from walking with a walker or crutches to a cane; then to no assistive devices. C. Make walking a part of your daily routine. Be up as much as comfortable with rest periods throughout the day. Rest with leg elevation is very important. Use the ice wrap frequently for the first 3-4 weeks. D. There are no restrictions on activities. You may ride in a car, shop, participate in reproduction specialist and all social activities. E. Wear the long elastic stockings (LIANG hose) 20 hours a day for 2 weeks after surgery. They can be removed several times a day for laundering and for a bath. F. You may shower, no tub baths until cleared by your doctor. SPECIAL CARE INSTRUCTIONS: VERY IMPORTANT TO READ AND REVIEW A. There are a few signs you need to watch for after you are home. Call [facility] if you notice any of the followin. Increased severe knee pain. Some pain is expected especially when you exercise. 2. Increased swelling in your leg or knee; pain or swelling of the calf muscle in either lower leg. 3. Any fluid drainage from the incision. 4. Shortness of breath or chest pain. B. Please call [facility] at if you have any concerns or questions about your operation or recovery. The doctor or his nurse will return your call promptly. C. You must take antibiotics before dental work, bladder, bowel or other surgery. Your doctor will provide you with a permanent care to carry describing this precaution. IMPORTANT: * REMEMBER TO TAKE ASPIRIN, 81 MG, TWICE DAILY FOR 4 WEEKS UNLESS OTHERWISE DIRECTED. THIS IS YOUR BLOOD THINNER. * HIGH RISK PATIENTS MAY BE PRESCRIBED A STRONGER BLOOD THINNER. THIS WILL BE PROVIDED AT DISCHARGE. * CALL IF INCREASED PAIN, REDNESS, DRAINAGE OR FEVER GREATER THAT 101. * WEAR LIANG HOSE 20 HOURS PER DAY FOR 2 WEEKS. * DERMABOND Prineo- This is a mesh tape dressing that is covered with glue. It should remain in place until the incision is properly healed, usually 10-14 days. This dressing is designed to naturally slough off. You may trim the excess mesh tape as it peels off. Incision may be briefly wet in a shower. Dry immediately by blotting with a clean, dry towel. Do not bath or swim until instructed by your doctor. Do not scratch, rub, or pick at the dressing. Do not apply any topical ointments or lotions until dressing is completely removed and/or instructed by your doctor. There may be a small piece of suture material at one end of your incision. Do not pull or trim this. If it is bothersome or catching on clothing, you may cover it with a band-aid. FOLLOW UP VISIT: If appointment is not already scheduled: Please call [facility] to make a follow-up appointment for 2 weeks after your surgery at . Current Hospital Diet Patient's current hospital diet: Regular Diet Discharge Diet Recommended Diet: Regular Diet Procedures Procedures Performed: Left total knee arthroplasty utilizing journey to patient match total knee arthroplasty size 3 femur to tibia 10 Poly 29 oval patella Pending Studies Studies pending at discharge: no Laboratory Results Hemoglobin A1c Test 12/28/17 13:28 Range/Units Estimated Average Glucose 105 mg/dl Hemoglobin A1c 5.3 4.5-5.6 % Lipid Panel Test 12/28/17 13:28 Range/Units Triglycerides Level 59 0-150 mg/dl Cholesterol Level 186 0-200 mg/dl HDL Cholesterol 86 mg/dl Cholesterol/HDL Ratio 2.2 LDL Cholesterol, Calculated 88 mg/dl Medical Emergencies . Who to Call and When: Medical Emergencies: If at any time you feel your situation is an emergency, please call 911 immediately. . Non-Emergent Contact Non-Emergency issues call your: Primary Care Provider, Surgeon . "Provider Documentation" section prepared by Jez Parekh. . [place] Drug Monitoring Program Search Results: patient reviewed within database, no issues identified
[2018-01-24] MEDS: LORAZEPAM 1 MG TAB PO SCH (20:44)
[2018-01-24] MEDS: SENNA 8.6 MG TAB PO SCH (20:45)
[2018-01-24] MEDS: CALCIUM POLYCARBOPHIL 1 TAB PO SCH (20:45)
[2018-01-24] MEDS: CeleBREX 200 MG CAP PO SCH (20:45)
[2018-01-24 23:08] VITALS: BP 123/63; PULSE 67; TEMP 36.7; O2SAT 96
[2018-01-25] MEDS: OXYCODONE HCL IR 5 MG TAB (IMMEDIATE RELEASE) PO PRN ×3 (06:14→18:53)
[2018-01-25] MEDS: ACETAMINOPHEN 500 MG TAB PO SCH ×3 (06:14→22:15)
[2018-01-25 07:29] VITALS: BP 121/62; PULSE 64; TEMP 36.7; O2SAT 97
--- NOTE | 2018-01-25 08:28 | Orthopedic Progress Note ---
Orthopedic Progress Note Date of Service Jan 25, 2018. Subjective Post OP Day: 2 Reports: feeling well, Denies: chest pain, SOB, nausea / vomiting, light headedness, calf pain Objective calves soft nontender, N/V intact, capillary refill less than 2 sec., incision C /D/I, A&O x3, toes mobile Date Time Temp Pulse Resp B/P (MAP) Pulse Ox O2 Delivery O2 Flow Rate FiO2 01/25/18 07:30 Room Air 01/25/18 07:29 36.7 64 18 121/62 (81) 97 Room Air 01/24/18 23:08 36.7 67 16 123/63 (83) 96 Room Air 01/24/18 19:45 Room Air 01/24/18 15:24 37.0 63 18 111/64 (80) 97 Room Air 01/24/18 15:15 Room Air 01/24/18 10:45 36.6 64 16 112/73 (86) 98 Room Air 01/24/18 10:43 77 98 Assessment & Plan Assessment: 72 yo female stable POD #2 s/p left TKA Plan: 1. Med management 2. DVT prophylaxis- ASA, SCDs 3. PT/OT 4. D/C planning: home w/ HH. DC HOME TODAY AFTER PT IF PAIN CONTROLLED
[2018-01-25] MEDS ORDERED: ASPEC81 PO (08:30)
[2018-01-25] MEDS ORDERED: ACET-24 PO (08:30)
[2018-01-25] MEDS ORDERED: RXC5 PO (08:31)
[2018-01-25] MEDS ORDERED: CLB200 PO (08:31)
[2018-01-25] MEDS ORDERED: ONDA-170 PO (08:31)
[2018-01-25] MEDS ORDERED: SENN-61 PO (08:31)
[2018-01-25] MEDS: ASPIRIN 81 MG ECTAB PO SCH ×2 (08:36→20:47)
[2018-01-25] MEDS: DOCUSATE SODIUM 100 MG CAP PO SCH ×2 (08:37→20:48)
[2018-01-25] MEDS: MULTIVITAMIN TAB PO SCH (08:37)
[2018-01-25] MEDS: CeleBREX 200 MG CAP PO SCH ×2 (08:37→20:47)
[2018-01-25] MEDS: TRAMADOL HCL 50 MG TAB PO PRN (08:38)
--- NOTE | 2018-01-25 09:42 | Discharge Summary ---
Orthopedic Discharge Summary Admission Date/Reason Jan 23, 2018 at 06:45 Left Knee Osteoarthritis. Discharge Date/Disposition Jan 25, 2018 Home with services Diagnosis Principal Diagnosis: Left knee osteoarthritis Procedure(s) Performed Left total knee arthroplasty utilizing journey to patient match total knee arthroplasty size 3 femur to tibia 10 Poly 29 oval patella Consultations NONE Medication Reconciliation New Medications: Ondansetron Hcl (Zofran) 8 Mg Tab 8 MG PO Q8 PRN for Nausea, #20 TAB Acetaminophen (Sb Non-Aspirin Extra Stre) 500 Mg Tab 1000 MG PO Q8H for 30 Days, #180 TAB Aspirin (Aspirin EC Low Dose) 81 Mg Ectab 81 MG PO BID for 30 Days, #60 TAB Celecoxib (Celebrex) 200 Mg Cap 200 MG PO BID, #60 CAP Oxycodone HCl (Oxycodone HCl) 5 Mg Tab 5-10 MG PO Q4H PRN for Pain, #60 TAB Senna (Senokot) 8.6 Mg Tab 17.2 MG PO HS for 14 Days, #28 TAB Continued Medications: Albuterol Hfa (Ventolin Hfa) 200 Puffs/17480 Mcg Aers 2-4 PUFFS INH Q6H PRN for Shortness of Breath, #1 INHALER Atorvastatin (Lipitor) 10 Mg Tab 2.5 MG PO Q2D Biotin (Biotin) 5 Mg Tab 1 TAB PO QPM Calcium Polycarbophil (Fiber-Lax) 625 Mg Tab 1 TAB PO QPM Fluticasone Propionate (Nasal) (Flonase Allergy Relief) 50 Mcg/Act Spr 2 SPRAYS CHUY QD PRN for Shortness of Breath Lorazepam (Ativan) 1 Mg Tab 0.5 MG PO HS, TAB Multivitamin (Multivitamin) Tab 1 TAB PO QPM, TAB Probiotic Product (Probiotic) 1 Cap Cap 1 CAP PO QPM Discontinued Medications: Naproxen Tab (Naprosyn) 250 Mg Tab 250 MG PO QD PRN for Pain, TAB Admission Physical Exam As per Admitting History & Physical. Hospital Course Patient was a same day admission after undergoing a successful left TKA. She tolerated the procedure well. Post-operatively, her activity was progressed and well tolerated. Please refer to daily progress notes and PT notes for complete details. After exam on 01/25/18, patient felt to be stable for discharge home with HHPT. Patient will f/u in the office in 2 weeks for further evaluation including x-rays and incision check, sooner if having any issues or concerns. Below are pertinent labs/studies during their hospital stay: Last Vital Signs Documentation Date Time Temp Pulse Resp B/P (MAP) Pulse Ox O2 Delivery O2 Flow Rate FiO2 01/25/18 07:30 Room Air 01/25/18 07:29 36.7 64 18 121/62 (81) 97 01/23/18 15:33 2.0 Last Resulted CBC 01/24/18 05:43 Last Resulted BMP 01/24/18 05:43 Discharge Instructions ACTIVITY RECOMMENDATIONS: SELF CARE INSTRUCTIONS AFTER TOTAL KNEE REPLACEMENT A. You may need to continue a physical therapy program after discharge from the hospital. There are several options available to you. Your doctor will assist you in selecting the best one for you. 1. An out-patient facility 2 to 3 times a week for therapy or home therapy. 2. Continue working on all exercises taught to you in the hospital. Your goals should be to increase bending of your knee to 90 degrees and beyond and to fully straighten your knee. B. You may progress at your own pace from walking with a walker or crutches to a cane; then to no assistive devices. C. Make walking a part of your daily routine. Be up as much as comfortable with rest periods throughout the day. Rest with leg elevation is very important. Use the ice wrap frequently for the first 3-4 weeks. D. There are no restrictions on activities. You may ride in a car, shop, participate in street worker and all social activities. E. Wear the long elastic stockings (LIANG hose) 20 hours a day for 2 weeks after surgery. They can be removed several times a day for laundering and for a bath. F. You may shower, no tub baths until cleared by your doctor. SPECIAL CARE INSTRUCTIONS: VERY IMPORTANT TO READ AND REVIEW A. There are a few signs you need to watch for after you are home. Call [facility] if you notice any of the followin. Increased severe knee pain. Some pain is expected especially when you exercise. 2. Increased swelling in your leg or knee; pain or swelling of the calf muscle in either lower leg. 3. Any fluid drainage from the incision. 4. Shortness of breath or chest pain. B. Please call [facility] at if you have any concerns or questions about your operation or recovery. The doctor or his nurse will return your call promptly. C. You must take antibiotics before dental work, bladder, bowel or other surgery. Your doctor will provide you with a permanent care to carry describing this precaution. IMPORTANT: * REMEMBER TO TAKE ASPIRIN, 81 MG, TWICE DAILY FOR 4 WEEKS UNLESS OTHERWISE DIRECTED. THIS IS YOUR BLOOD THINNER. * HIGH RISK PATIENTS MAY BE PRESCRIBED A STRONGER BLOOD THINNER. THIS WILL BE PROVIDED AT DISCHARGE. * CALL IF INCREASED PAIN, REDNESS, DRAINAGE OR FEVER GREATER THAT 101. * WEAR LIANG HOSE 20 HOURS PER DAY FOR 2 WEEKS. * DERMABOND Prineo- This is a mesh tape dressing that is covered with glue. It should remain in place until the incision is properly healed, usually 10-14 days. This dressing is designed to naturally slough off. You may trim the excess mesh tape as it peels off. Incision may be briefly wet in a shower. Dry immediately by blotting with a clean, dry towel. Do not bath or swim until instructed by your doctor. Do not scratch, rub, or pick at the dressing. Do not apply any topical ointments or lotions until dressing is completely removed and/or instructed by your doctor. There may be a small piece of suture material at one end of your incision. Do not pull or trim this. If it is bothersome or catching on clothing, you may cover it with a band-aid. FOLLOW UP VISIT: If appointment is not already scheduled: Please call [facility] to make a follow-up appointment for 2 weeks after your surgery at .
[2018-01-25 10:18] VITALS: BP 146/78
[2018-01-25 15:15] VITALS: BP 126/72; PULSE 63; TEMP 36.9; O2SAT 98
[2018-01-25] MEDS: SENNA 8.6 MG TAB PO SCH (20:45)
[2018-01-25] MEDS: CALCIUM POLYCARBOPHIL 1 TAB PO SCH (20:47)
[2018-01-25] MEDS: LORAZEPAM 1 MG TAB PO SCH (20:48)
[2018-01-25 23:01] VITALS: BP 150/69; PULSE 73; TEMP 36.5; O2SAT 96
[2018-01-26] MEDS: ACETAMINOPHEN 500 MG TAB PO SCH (06:03)
[2018-01-26 06:36] VITALS: BP 133/71; PULSE 61; TEMP 36.6; O2SAT 97
[2018-01-26] MEDS: ASPIRIN 81 MG ECTAB PO SCH (07:19)
[2018-01-26] MEDS: ATORVASTATIN 10 MG TAB PO SCH (07:19)
[2018-01-26] MEDS: CeleBREX 200 MG CAP PO SCH (07:19)
[2018-01-26] MEDS: MULTIVITAMIN TAB PO SCH (07:20)
[2018-01-26] MEDS: DOCUSATE SODIUM 100 MG CAP PO SCH (07:20)
[2018-01-26] MEDS: OXYCODONE HCL IR 5 MG TAB (IMMEDIATE RELEASE) PO PRN (07:22)
--- NOTE | 2018-01-26 07:36 | Orthopedic Progress Note ---
Orthopedic Progress Note Date of Service Jan 26, 2018. Subjective Post OP Day: 3 Reports: feeling well, pain controlled w PO medications, Denies: complaints, chest pain, SOB, nausea / vomiting, light headedness, calf pain Objective calves soft nontender, N/V intact, capillary refill less than 2 sec., incision C /D/I, A&O x3, toes mobile Date Time Temp Pulse Resp B/P (MAP) Pulse Ox O2 Delivery O2 Flow Rate FiO2 01/26/18 06:36 36.6 61 14 133/71 (91) 97 Room Air 01/25/18 23:01 36.5 73 18 150/69 (96) 96 Room Air 01/25/18 20:57 Room Air 01/25/18 15:15 36.9 63 16 126/72 (90) 98 Assessment & Plan Assessment: 72 yo female stable POD #3 s/p left TKA Plan: 1. Med management 2. DVT prophylaxis- ASA, SCDs 3. PT/OT 4. D/C planning: home w/ HH. DC HOME TODAY AFTER PT
[2018-01-26 08:20] VITALS: BP 133/71; PULSE 61; TEMP 36.6; O2SAT 97
== END 2018-01-26 10:31 | disposition home health service (06) | DRG 470 ==
LOC: C.ACU 04:56 → UNDOADMIN 06:45 → C.3E 06:45 → ENRESERV 09:16
PROVIDERS: ADMIT Orthopaedic Surgery; ATTEND Orthopaedic Surgery
PROC: 0SRD0J9 Replacement of Left Knee Joint with Synthetic Substitute, Cemented, Open Approach (ICD-10-PCS; principal; 2018-01-23 07:00)
DX: M17.12 Unilateral primary osteoarthritis, left knee (principal); M25.462 Effusion, left knee; J44.9 Chronic obstructive pulmonary disease, unspecified; E78.5 Hyperlipidemia, unspecified; F41.9 Anxiety disorder, unspecified; F32.9 Major depressive disorder, single episode, unspecified; Z96.651 Presence of right artificial knee joint; Z87.891 Personal history of nicotine dependence; Z79.899 Other long term (current) drug therapy; Z88.1 Allergy status to other antibiotic agents

== ENCOUNTER → 2018-05-27 | Outpatient (CLI) | payer OTHER ==
[~2018-05-27] MED LIST changes: +INDO-24 PO; -MULT-506 PO; -NAPR250T3 PO
--- NOTE | 2018-05-27 13:44 | DIAGNOSTIC IMAGING REPORT ---
CT OF THE CHEST WITHOUT IV CONTRAST CLINICAL HISTORY: Multiple pulmonary nodules. COMPARISON STUDY: Chest CT March 01, 2016 and June 05, 2017. Chest radiograph December 28, 2017. CT DOSE: 206.94 mGy.cm TECHNIQUE: Axial images of the chest were obtained without IV contrast. Images were reviewed in the axial, sagittal, and coronal planes. IV contrast was not administered for this examination. A dose lowering technique was utilized adhering to the principles of ALARA. FINDINGS: No enlarged axillary, mediastinal or hilar lymph nodes are present. The size of the heart is normal. There is no pericardial effusion. There is moderate coronary artery calcification. Central airways are patent. No consolidation is noted. There is no pneumothorax or pleural effusion. A 2 mm right lower lobe nodule shown on image 225 of 331 is unchanged since initial CT of March 01, 2016. Previously described nodules within the superior segment of the left lower lobe have essentially resolved. There are no suspicious findings within the chest. There are a few tiny calcified granulomas. Upper abdomen is unremarkable on this unenhanced study. IMPRESSION: No change in a 2 mm right lower lobe nodule since initial chest CT. This nodule is benign given stability. No suspicious pulmonary nodules. Electronically signed by: Zafar Colvin M.D. 05/27/2018 1:43 PM Dictated Date/Time: 05/27/2018 1:36 PM
== END | disposition home or self-care (01) ==
LOC: C.CTS 13:16
PROVIDERS: ATTEND Physician Assistant
DX: R91.1 Solitary pulmonary nodule (principal)